=== PATIENT | female | born 1930 | race Hispanic/Latino ===

== ENCOUNTER 2017-05-14 17:20 | Emergency (ER) | payer OTHER ==
[2017-05-14] MEDS ORDERED: LIDOCAINE 1%-EPI 1:100,000 20 ML VIAL IJ ONE (18:28)
[2017-05-14] MEDS ORDERED: TETANUS/DIPHTHERIA TOXOID [ADULT] 0.5 ML VIAL IM ONE (18:29)
== END 2017-05-14 19:26 | disposition home or self-care (01) ==
LOC: EDH 17:20
DX: S01.511A Laceration without foreign body of lip, initial encounter (principal); E78.5 Hyperlipidemia, unspecified; I10 Essential (primary) hypertension; W18.39XA Other fall on same level, initial encounter; Y93.01 Activity, walking, marching and hiking; Y92.89 Other specified places as the place of occurrence of the external cause; Y99.8 Other external cause status
CPT/HCPCS: 12011; 70450; 70486; 72125; 90471; 90714; 99284; J3490

== ENCOUNTER 2017-05-17 17:37 | Inpatient (IN) | payer OTHER ==
[~2017-05-17] VITALS: Ht 157.5 cm; Wt 56.2 kg
[2017-05-17 18:19] LABS: BASOPHILS % (AUTO) 0.3 % (0.0-5.0); EOSINOPHILS % (AUTO) 0.7 % (0.0-8.0); HEMATOCRIT 29.2 % (36-48); LYMPHOCYTES % (AUTO) 9.4 % (21.0-51.0); MEAN CORPUSCULAR HEMOGLOBIN 30.9 pg (27.0-33.0); MEAN CORPUSCULAR HGB CONC 34.2 g/dL (32.0-36.0); MEAN CORPUSCULAR VOLUME 90.2 fL (79-99); MONOCYTES % (AUTO) 8.1 % (3.0-13.0); NEUTROPHILS % (AUTO) 81.5 % (40.0-77.0); PLATELET COUNT (AUTO) 178 K/uL (130-400); RED BLOOD CELL COUNT(AUTO) 3.24 MIL/uL (4.00-5.50); RED CELL DISTRIBUTION WIDTH 13.6 % (11.0-15.5); WHITE BLOOD COUNT (AUTO) 8.2 K/uL (4.8-10.8)
[2017-05-17 18:30] LABS: INR 0.91 (0.85-1.15); PARTIAL THROMBOPLASTIN TIME 28.5 SEC (26.3-35.5); PROTHROMBIN TIME 9.6 SEC (9.6-11.6)
[2017-05-17 18:42] LABS: ALBUMIN 3.9 g/dL (3.5-5.0); BILIRUBIN,TOTAL 0.5 mg/dL (0.2-1.0); CREATINE KINASE MB 4.4 ng/mL (0.5-3.6); CREATININE 1.7 mg/dL (0.5-1.5); POTASSIUM 4.2 mmol/L (3.5-5.1); TOTAL PROTEIN, SERUM 7.3 g/dL (6.0-8.3)
[2017-05-17 21:11] LABS: APPEARANCE,URINE Clear (CLEAR); BILIRUBIN,URINE Negative (NEGATIVE); COLOR,URINE Yellow (YELLOW); GLUCOSE, URINE (UA) Negative (NEGATIVE); KETONES,URINE Negative (NEGATIVE); LEUKOCYTE ESTERASE ,URINE Large (NEGATIVE); NITRATE,URINE Negative (NEGATIVE); OCCULT BLOOD,URINE Negative (NEGATIVE); PROTEIN,URINE POS 1+ (NEGATIVE); UROBILINOGEN,URINE 0.2 mg/dL (0.2-1.0)
[2017-05-17 21:50] LABS: BACTERIA,URINE Few /HPF (None Seen); RBC,URINE 0-1 /HPF (0-1)
[2017-05-17 21:51] LABS: SQUAMOUS EPITHELIAL CELL,UR Rare /HPF (0-2); TRANSITIONAL EPI CELLS,URINE Few /HPF (None Seen)
[2017-05-17] MEDS ORDERED: SODIUM CHLORIDE 0.9% 1000ML 1,000 ML IV ONE (23:21)
[2017-05-18] VITALS (7 sets, daily range): BP systolic 155–192; BP diastolic 63–96
[2017-05-18] MEDS: SODIUM CHLORIDE 0.9% 1000ML 1,000 ML IV SCH ×2 (00:29→15:27)
[2017-05-18] MEDS ORDERED: ONDANSETRON HCL 4 MG/2 ML VIAL IV PRN (00:30)
[2017-05-18] MEDS ORDERED: POTASSIUM CHLORIDE 10% ELIXIR 20 MEQ/15 ML UDCUP PO PRN (00:30)
[2017-05-18] MEDS ORDERED: SODIUM CHLORIDE 0.9% 1000ML 1,000 ML IV SCH (00:30)
[2017-05-18] MEDS ORDERED: CEFTRIAXONE 1GM/D5W 50ML 50 ML IV SCH (00:30)
[2017-05-18] MEDS ORDERED: ACETAMINOPHEN 325 MG TAB PO PRN ×2 (00:30)
[2017-05-18] MEDS ORDERED: LIDOCAINE HCL-MPF 1% 2ML VIAL IVP PRN (00:30)
[2017-05-18] MEDS ORDERED: MORPHINE SULFATE 2 MG/ML 1ML SYG IV PRN (00:30)
[2017-05-18] MEDS ORDERED: POTASSIUM CHLORIDE 20 MEQ ERTAB PO PRN (00:30)
[2017-05-18] MEDS ORDERED: POTASSIUM CHLORIDE 20MEQ/100ML 100 ML IV PRN (00:30)
[2017-05-18] MEDS ORDERED: HYDRALAZINE HCL 20 MG/ML VIAL IV PRN (00:30)
[2017-05-18] MEDS ORDERED: MORPHINE SULFATE 4 MG/1ML SYG ONE ×2 (01:54→23:18)
[2017-05-18] MEDS ORDERED: CEFTRIAXONE SODIUM 1 GM ONE (03:31)
[2017-05-18] MEDS: FAMOTIDINE 20MG TAB 20 MG TAB PO SCH ×2 (09:54→20:48)
[2017-05-18] MEDS ORDERED: FERS325 PO (16:50)
[2017-05-18] MEDS ORDERED: LISI40TA4 PO (16:50)
[2017-05-18] MEDS ORDERED: HYDR-4068 PO (16:50)
[2017-05-18] MEDS: CEFTRIAXONE SODIUM 1 GM IVP SCH (20:48)
[2017-05-18 20:51] LABS: CREATININE 1.7 mg/dL (0.5-1.5)
[2017-05-18] MEDS: ACETAMINOPHEN-CODEINE 300/30MG TAB PO PRN (20:54)
[2017-05-19 04:29] VITALS: BP 167/88
[2017-05-19 05:00] VITALS: BP 137/57
[2017-05-19] MEDS ORDERED: MORPHINE SULFATE 4 MG/1ML SYG ONE (06:22)
[2017-05-19 08:09] VITALS: BP 150/58
[2017-05-19] MEDS: FAMOTIDINE 20MG TAB 20 MG TAB PO SCH ×2 (08:39→19:33)
[2017-05-19] MEDS: ACETAMINOPHEN-CODEINE 300/30MG TAB PO PRN (08:39)
[2017-05-19] MEDS: SODIUM CHLORIDE 0.9% 1000ML 1,000 ML IV SCH (08:39)
[2017-05-19 10:13] LABS: CREATININE 1.5 mg/dL (0.5-1.5); POTASSIUM 4.2 mmol/L (3.5-5.1)
[2017-05-19 11:13] VITALS: BP 134/61
[2017-05-19 16:29] VITALS: BP 150/69
[2017-05-19 18:20] LABS: CREATININE 1.6 mg/dL (0.5-1.5)
[2017-05-19] MEDS ORDERED: HYDROCODONE/ACETAMINOPHEN 10/325 MG TAB PO PRN (19:00)
[2017-05-19] MEDS ORDERED: HYDROCODONE/ACETAMINOPHEN 10/325 MG TAB ONE (19:29)
[2017-05-19] MEDS: CEFTRIAXONE SODIUM 1 GM IVP SCH (19:32)
[2017-05-19] MEDS ORDERED: ONDANSETRON HCL MDV 20ML 2 MG/ML VIAL IV PRN (19:36)
[2017-05-19] MEDS ORDERED: DOCU-272 PO (19:39)
[2017-05-19] MEDS ORDERED: SIMV40TA5 PO (19:39)
[2017-05-19 19:43] VITALS: BP 159/75
[2017-05-19] MEDS: FERROUS SULFATE 325 MG TABLET.DR PO SCH (19:44)
[2017-05-19] MEDS ORDERED: ATORVASTATIN CALCIUM 10 MG TABLET PO SCH (21:00)
[2017-05-19] MEDS ORDERED: DOCUSATE SODIUM 100 MG CAP PO SCH (21:00)
[2017-05-20 00:10] VITALS: BP 137/60
[2017-05-20] MEDS: SODIUM CHLORIDE 0.9% 1000ML 1,000 ML IV SCH (03:02)
[2017-05-20 04:31] VITALS: BP 151/71
[2017-05-20 07:00] VITALS: BP 164/73
[2017-05-20] MEDS ORDERED: LISINOPRIL 40 MG TABLET PO SCH (09:00)
[2017-05-20] MEDS: FERROUS SULFATE 325 MG TABLET.DR PO SCH (09:13)
[2017-05-20] MEDS: FAMOTIDINE 20MG TAB 20 MG TAB PO SCH (09:13)
== END 2017-05-20 10:46 | disposition home or self-care (01) | DRG 641 ==
LOC: EDH 17:37 → EDHIP 22:28 → OBSVTOIN 22:28 → 3AH 05-18 01:15
PROVIDERS: ADMIT Family Medicine; ATTEND Family Medicine
DX: E87.1 Hypo-osmolality and hyponatremia (principal); E78.5 Hyperlipidemia, unspecified; W01.0XXA Fall on same level from slipping, tripping and stumbling without subsequent striking against object, initial encounter; N18.9 Chronic kidney disease, unspecified; I12.9 Hypertensive chronic kidney disease with stage 1 through stage 4 chronic kidney disease, or unspecified chronic kidney disease; M19.90 Unspecified osteoarthritis, unspecified site; Y93.89 Activity, other specified; Y92.89 Other specified places as the place of occurrence of the external cause; Y99.8 Other external cause status; Z90.710 Acquired absence of both cervix and uterus; Z82.49 Family history of ischemic heart disease and other diseases of the circulatory system
CPT/HCPCS: 12011; 36415; 70450; 70486; 72125; 73030; 80048; 80053; 81001; 82150; 82550; 82553; 83930; 83935; 84295; 84443; 84484; 84550; 85025; 85610; 85730; 90471; 90714; 93005; 93306; A4218; J0360; J0696; J2270; J3490; J7030

== ENCOUNTER → 2017-08-02 | Outpatient (CLI) | payer OTHER ==
[~2017-08-02] MED LIST: DOCU-272 PO; FERS325 PO; HYDR-4068 PO; LISI40TA4 PO; SIMV40TA5 PO
== END | disposition home or self-care (01) ==
LOC: SHCH 10:41
PROVIDERS: ATTEND Internal Medicine Cardiovascular Disease
DX: I51.7 Cardiomegaly (principal); I35.0 Nonrheumatic aortic (valve) stenosis
CPT/HCPCS: 93306

== ENCOUNTER 2017-12-08 14:38 | Emergency (ER) | payer OTHER ==
[~2017-12-08 14:38] MED LIST changes: +CHOL500051 PO; +HYDR-4154 PO; +ISOS30TA6 PO; +NITR0.4T50 SL
[2017-12-08] MEDS ORDERED: SODIUM CHLORIDE 0.9% 500ML 500 ML IV ONE (14:55)
[2017-12-08 15:06] LABS: BASOPHILS % (AUTO) 0.5 % (0.0-5.0); EOSINOPHILS % (AUTO) 0.2 % (0.0-8.0); HEMATOCRIT 24.2 % (36-48); LYMPHOCYTES % (AUTO) 7.6 % (21.0-51.0); MEAN CORPUSCULAR HEMOGLOBIN 29.9 pg (27.0-33.0); MEAN CORPUSCULAR HGB CONC 32.9 g/dL (32.0-36.0); MEAN CORPUSCULAR VOLUME 90.9 fL (79-99); MONOCYTES % (AUTO) 11.8 % (3.0-13.0); NEUTROPHILS % (AUTO) 79.9 % (40.0-77.0); PLATELET COUNT (AUTO) 119 K/uL (130-400); RED BLOOD CELL COUNT(AUTO) 2.66 MIL/uL (4.00-5.50); WHITE BLOOD COUNT (AUTO) 6.6 K/uL (4.8-10.8)
[2017-12-08 15:19] LABS: APPEARANCE,URINE Clear (CLEAR); BILIRUBIN,URINE Negative (NEGATIVE); COLOR,URINE Yellow (YELLOW); GLUCOSE, URINE (UA) Negative (NEGATIVE); KETONES,URINE Negative (NEGATIVE); LEUKOCYTE ESTERASE ,URINE Small (NEGATIVE); NITRATE,URINE Negative (NEGATIVE); OCCULT BLOOD,URINE Negative (NEGATIVE); PH,URINE 6.5 (5.0-8.0); PROTEIN,URINE POS 2+ (NEGATIVE); UROBILINOGEN,URINE 0.2 mg/dL (0.2-1.0)
[2017-12-08 15:20] LABS: INR 0.95 (0.85-1.15); PARTIAL THROMBOPLASTIN TIME 27.9 SEC (26.3-35.5)
[2017-12-08 16:08] LABS: CREATININE 2.4 mg/dL (0.5-1.5); POTASSIUM 4.3 mmol/L (3.5-5.1)
[2017-12-08 16:46] LABS: RBC,URINE 0-1 /HPF (0-1)
[2017-12-08 16:47] LABS: BACTERIA,URINE Few /HPF (None Seen); SQUAMOUS EPITHELIAL CELL,UR Few /HPF (0-2)
[2017-12-08 16:48] LABS: TRANSITIONAL EPI CELLS,URINE Rare /HPF (None Seen); YEAST,URINE BUDDING Rare /HPF (None Seen)
== END 2017-12-08 17:04 | disposition home or self-care (01) ==
LOC: EDH 14:38
DX: E86.9 Volume depletion, unspecified (principal); R55 Syncope and collapse; E78.5 Hyperlipidemia, unspecified; I10 Essential (primary) hypertension; E11.9 Type 2 diabetes mellitus without complications; M19.90 Unspecified osteoarthritis, unspecified site; G89.29 Other chronic pain; M54.9 Dorsalgia, unspecified; Z88.6 Allergy status to analgesic agent; Z88.8 Allergy status to other drugs, medicaments and biological substances
CPT/HCPCS: 36415; 70450; 80048; 81001; 84484; 85025; 85610; 85730; 93005; 96360; 99285; J7040

== ENCOUNTER 2018-06-10 21:22 | Emergency (ER) | payer OTHER ==
[2018-06-10] MEDS ORDERED: OCTYL 2-CYANOACRYLATE 1 EACH TP ONE (23:12)
== END 2018-06-11 00:34 | disposition home or self-care (01) ==
LOC: EDH 21:22
DX: S01.81XA Laceration without foreign body of other part of head, initial encounter (principal); S50.811A Abrasion of right forearm, initial encounter; I10 Essential (primary) hypertension; E11.9 Type 2 diabetes mellitus without complications; E78.5 Hyperlipidemia, unspecified; M19.90 Unspecified osteoarthritis, unspecified site; G89.29 Other chronic pain; Z79.4 Long term (current) use of insulin; Z88.6 Allergy status to analgesic agent; Z90.89 Acquired absence of other organs; Z90.710 Acquired absence of both cervix and uterus; Z98.890 Other specified postprocedural states; W18.39XA Other fall on same level, initial encounter; Y93.89 Activity, other specified; Y92.009 Unspecified place in unspecified non-institutional (private) residence as the place of occurrence of the external cause; Y99.8 Other external cause status
CPT/HCPCS: 12051; 70450; 72125

== ENCOUNTER → 2020-03-22 | Outpatient (CLI) | payer OTHER ==
[~2020-03-22] MED LIST changes: -ISOS30TA6 PO; +ISOS30TA92 PO; -LISI40TA4 PO; +LISI40TA9 PO; +SIMV-46 PO; -SIMV40TA5 PO
== END | disposition home or self-care (01) ==
LOC: SHCH 15:20
PROVIDERS: ATTEND Internal Medicine Cardiovascular Disease
DX: I35.0 Nonrheumatic aortic (valve) stenosis (principal)
CPT/HCPCS: 93306; 93356

== ENCOUNTER → 2020-03-29 | Outpatient (CLI) | payer OTHER | END | disposition home or self-care (01) | LOC: SHCH 14:10 | PROVIDERS: ATTEND Internal Medicine Cardiovascular Disease | DX: I73.9 Peripheral vascular disease, unspecified (principal) | CPT/HCPCS: 93925 ==